=== PATIENT | male | born 1985 | race Caucasian/White ===

== ENCOUNTER 2017-01-25 15:56 | Emergency (ER) | payer OTHER ==
[~2017-01-25] VITALS: Ht 180.3 cm; Wt 150.0 kg
[2017-01-25 16:08] VITALS: BP 130/78
[2017-01-25] MEDS ORDERED: LIDOCAINE 1% (XYLOCAINE) 20 ML VIAL INJ ONE (16:20)
--- NOTE | 2017-01-25 16:59 | Diagnostic Imaging Report ---
INDICATION: Trauma to the right third and fourth digits. EXAMINATION: Three views of the right third and fourth digits were obtained. FINDINGS: There is a comminuted fracture involving the tuft of the fourth digit with no abnormality proximal to this. There is a comminuted intra-articular fracture involving the middle phalanx of the third digit at the DIP joint. IMPRESSION: There is a fracture of the tuft of the fourth digit and an intra-articular fracture involving the middle phalanx of the third digit at the DIP joint. Dictated by: Dictated on workstation # [id number]
--- NOTE | 2017-01-25 17:38 | NUR ---
ASKED BLADDER CLEANER IF IT IS DOT OR NON DOT, BLADDER CLEANER DID NOT KNOW, HE STATED TO DO A NON DOT
[2017-01-25] MEDS ORDERED: CEPHALEXIN 500 MG (KEFLEX) CAPSULE PO ONE (18:50)
[2017-01-25] MEDS ORDERED: HYDR-3811 PO (18:55)
[2017-01-25] MEDS ORDERED: CEPH-331 PO (18:55)
--- NOTE | 2017-01-25 19:07 | NUR ---
SENT [facility] A FAX OF [employer]
== END 2017-01-25 19:05 | disposition home or self-care (01) ==
LOC: ED 16:01
DX: S61.212A Laceration without foreign body of right middle finger without damage to nail, initial encounter (principal); S62.634B Displaced fracture of distal phalanx of right ring finger, initial encounter for open fracture; W31.89XA Contact with other specified machinery, initial encounter; Y99.0 Civilian activity done for income or pay
CPT/HCPCS: 99283

== ENCOUNTER → 2017-01-25 | Outpatient (REF) | payer OTHER ==
[~2017-01-25] MED LIST: CEPH-331 PO; HYDR-3811 PO
== END ==
LOC: EUOP 17:19
PROVIDERS: ATTEND Emergency Medicine
DX: Z02.89 Encounter for other administrative examinations (principal); Z02.83 Encounter for blood-alcohol and blood-drug test